=== PATIENT | male | born 2000 | race Caucasian/White ===

== ENCOUNTER 2023-02-15 22:21 | Emergency (ER) | payer OTHER ==
[~2023-02-15] VITALS: Ht 185.4 cm; Wt 116.1 kg
--- NOTE | 2023-02-15 22:30 | NUR ---
PT BIBA FOR WITNESSED SEIZURE. PT PLACED ON MONITOR.
[2023-02-15] MEDS ORDERED: IV NORMAL SALINE 1000 ML BAG IV ONE (22:45)
[2023-02-15] MEDS ORDERED: LEVE500T9 (22:53)
[2023-02-15 22:58] LABS: CARBON DIOXIDE 23 mmol/L (21-32); CHLORIDE 104 mmol/L (98-107); CREATININE 1.2 mg/dL (0.6-1.3); POTASSIUM 3.1 mmol/L (3.5-5.1); UREA NITROGEN, BLOOD 9 mg/dL (7-18)
[2023-02-15] MEDS ORDERED: POTASSIUM BICARBONATE/CIT AC 25 MEQ TABLET.EFF PO ONE (23:15)
[2023-02-15] MEDS ORDERED: POTASSIUM BICARBONATE/CIT AC 25 MEQ TABLET.EFF ONE (23:27)
[2023-02-16 00:11] LABS: MEAN CORPUSCULAR VOLUME 90.7 fL (73.0-96.2); PLATELET COUNT (AUTO) 292 K/uL (152-348)
--- NOTE | 2023-02-16 00:12 | NUR ---
Pt is noted off the unit , stable as he is been discharged to home with all discharged instructions given with no S/S off distress.
[2023-02-16 00:14] VITALS: BP 122/68; TEMP 99; O2SAT 96
== END 2023-02-16 00:15 | disposition home or self-care (01) ==
LOC: ER 22:23
DX: S01.511A Laceration without foreign body of lip, initial encounter (principal); R56.9 Unspecified convulsions; E87.6 Hypokalemia; Z79.899 Other long term (current) drug therapy; X58.XXXA Exposure to other specified factors, initial encounter; Y93.89 Activity, other specified; Y92.89 Other specified places as the place of occurrence of the external cause; Y99.8 Other external cause status
CPT/HCPCS: 36415; 83605; 83735; 85025; A4663; G0480; J7040